=== PATIENT | male | born 1950 | race Caucasian/White ===

== ENCOUNTER 2024-05-29 20:15 | Emergency (ER) | payer SELFPAY ==
[2024-05-29 20:50] VITALS: TEMP 98.9
[2024-05-29 20:51] VITALS: BMI 22.9
[2024-05-29 22:19] VITALS: BP 115/79; PULSE 69; RESP 16
== END 2024-05-29 22:29 | disposition home or self-care (01) ==
LOC: JER 20:15
DX: R53.83 Other fatigue (principal); R53.1 Weakness; I10 Essential (primary) hypertension
CPT/HCPCS: 99283-25